=== PATIENT | female | born 1980 | race Caucasian/White ===

== ENCOUNTER 2018-02-08 09:17 | Emergency (ER) | payer OTHER ==
[2018-02-08] MEDS ORDERED: AMOX/CLAV 875 MG/125 MG TABLET PO STA (09:42)
--- NOTE | 2018-02-08 10:08 | XRAY Report ---
Reason: dog bite Procedure Date: 02/08/2018 Accession Number: [id number] / [id number] Procedure: XR - Hand 3 View RT CPT Code: FULL RESULT: EXAM: RIGHT HAND RADIOGRAPHY EXAM DATE: 02/08/2018 09:51 AM. CLINICAL HISTORY: Dog bite third digit. Pain. COMPARISON: None. TECHNIQUE: 3 views. FINDINGS: Bones: Normal. No fractures or bone lesions. Joints: Normal. No subluxations. Soft Tissues: Mild soft tissue swelling about the third digit. No radiopaque foreign body. IMPRESSION: No osseous abnormality or radiopaque foreign body. RADIA
--- NOTE | 2018-02-08 10:11 | ED Physician Documentation ---
PD HPI ANIMAL BITE - Stated complaint Stated Complaint: DOG BITE - Chief complaint Chief Complaint: Wound - History obtained from History obtained from: Patient - History of Present Illness Location of injury(ies): Right hand Details of the event: Dog, Bite, Scratch, Immunized Timing - onset: Other (2 days ago) Timing - details: Abrupt onset Severity Comments: mild Improved by: Rest Worsened by: Moving Associated symptoms: Tingling, Swelling. 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 - Present Medications Home Medications: Ambulatory Orders Medication Instructions Recorded Confirmed Dextroamphetamine/Amphetamine 20 mg PO QAM 04/21/13 04/21/13 [Adderall 15 mg Tablet] Levonorgestrel [Mirena] 1 each IY 04/21/13 04/21/13 Trazodone HCl 50 mg PO HS PRN 04/21/13 04/21/13 Amox/Clav 875/125 [Augmentin] 1 each PO Q12H #20 tablet 02/08/18 - Allergies Allergies/Adverse Reactions: Allergies Allergy/AdvReac Type Severity Reaction Status Date / Time doxycycline Allergy Unknown Verified 02/08/18 09:44 - Social History Does the pt smoke?: Yes Smoking Status: Current every day smoker Does the pt drink ETOH?: No Does the pt have substance abuse?: No - Immunizations Immunizations are current?: Yes PD ED PE NORMAL - General General: Alert and oriented X 3, No acute distress - HEENT HEENT: Atraumatic, PERRL, EOMI, Ears normal - Derm Derm: Other (The patient has a puncture wound and abrasions to the right volar aspect of the third digit) - Extremities Extremities: No deformity, Other (The patient has full active range of motion of the right hand, strength brisk cap refill, a normal radial pulse. There is no bony tenderness. There is evidence of a dog bite puncture wound on the volar side of the right third digit, there is also teeth singh scratches. The patient is tender to palpation over this area. There is no tenderness along the flexor tendon, no pain with passive range of motion of the fingers, there is swelling but the swelling appears appropriate for the wound and is not a sausage appearing digit. No active drainage. There is no erythema streaking up the hand) - Neuro Neuro: Alert and oriented X 3, Normal speech - Psych Psych: Normal mood Results - Vitals Vitals: Vital Signs - 24 hr 02/08/18 02/08/18 09:29 10:21 Temperature 36.4 C L Heart Rate 64 64 Respiratory 16 17 Rate Blood Pressure 129/69 122/75 O2 Saturation 98 98 Oxygen O2 Source Room air PD MEDICAL DECISION MAKING - ED course ED course: The patient has no clinical evidence of flexor tenosynovitis, there is local erythema and the patient replaced on a course of antibiotics given the fact that this is a dog bite. The patient has a paresthesia sensation which most likely is secondary to the injury. The patient appears appropriate for discharge and reevaluation by orthopedics as an outpatient. I discussed with the patient warning signs for flexor tenosynovitis and various other etiologies and recommended returning to the emergency department immediately for any worsening or any concerns. Departure - Departure Disposition: 01 Home, Self Care Clinical Impression: Dog bite Qualifiers: Encounter type: initial encounter Qualified Code(s): W54.0XXA - Bitten by dog, initial encounter Condition: Good Instructions: ED Bite Dog Follow-Up: Deion Michelle MD [Provider Admit Priv/Credential] - Within 1 week Prescriptions: Amox/Clav 875/125 [Augmentin] 1 each PO Q12H #20 tablet Comments: Please follow-up with orthopedics for your hand injury. Please call to schedule appointment. Please return to the emergency department immediately for any worsening or concerns.
[2018-02-08 10:22] VITALS: BP 122/75
== END 2018-02-08 10:21 | disposition home or self-care (01) ==
LOC: ED 09:17
DX: S61.451A Open bite of right hand, initial encounter (principal); S60.511A Abrasion of right hand, initial encounter; W54.0XXA Bitten by dog, initial encounter; L53.9 Erythematous condition, unspecified; F17.200 Nicotine dependence, unspecified, uncomplicated
CPT/HCPCS: 73130; 99283; A9270

== ENCOUNTER 2018-03-18 11:07 | Emergency (ER) | payer OTHER ==
--- NOTE | 2018-03-18 13:21 | ED Physician Documentation ---
PD HPI ABD PAIN - Stated complaint Stated Complaint: VOMITTING/R SIDE PX - Chief complaint Chief Complaint: Abd Pain - History obtained from History obtained from: Patient - History of Present Illness Timing - onset: How many weeks ago (1) Timing - duration: Weeks (1) Timing - details: Abrupt onset (had onset of nausea for a week. Had some episodic vomiting, but this is more the past 1-2 days. Having upper abd pain for a day, RUQ mostly. No hematemesis. has had constipation.), Still present Quality: Cramping, Aching, Pain Location: RUQ, Epigastric Radiation: Right flank Improved by: Vomiting. No: Eating Worsened by: Eating. No: Breathing, Palpation Associated symptoms: Nausea, Vomiting, Constipation. No: Fever, Hematemesis, Diarrhea, Melena, Dysuria, Vaginal bleeding, Vaginal dc Similar symptoms before: Has not had sx before Recently seen: Clinic (seen today and referred to ER for testing.) Review of Systems Constitutional: reports: Fatigue. denies: Fever, Chills, Myalgias Nose: denies: Rhinorrhea / runny nose, Congestion Throat: denies: Sore throat Respiratory: denies: Cough GI: reports: Abdominal Pain, Nausea, Vomiting, Constipation : denies: Dysuria, Frequency Skin: denies: Rash, Lesions Neurologic: reports: Generalized weakness. 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 - Present Medications Home Medications: Ambulatory Orders Medication Instructions Recorded Confirmed Dextroamphetamine/Amphetamine 20 mg PO QAM 04/21/13 04/21/13 [Adderall 15 mg Tablet] Levonorgestrel [Mirena] 1 each IY 04/21/13 04/21/13 Trazodone HCl 50 mg PO HS PRN 04/21/13 04/21/13 Amox/Clav 875/125 [Augmentin] 1 each PO Q12H #20 tablet 02/08/18 Famotidine 20 mg PO DAILY #15 tablet 03/18/18 Naproxen 375 mg PO BID #20 tablet 03/18/18 Ondansetron Odt [Zofran] 4 mg TL Q6H PRN #10 tablet 03/18/18 - Allergies Allergies/Adverse Reactions: Allergies Allergy/AdvReac Type Severity Reaction Status Date / Time doxycycline Allergy Unknown Verified 03/18/18 11:15 - Social History Does the pt smoke?: Yes Smoking Status: Current every day smoker Does the pt drink ETOH?: No Does the pt have substance abuse?: No - Immunizations Immunizations are current?: Yes PD ED PE NORMAL - Vitals Vital signs reviewed: Yes - General General: Alert and oriented X 3, No acute distress, Well developed/nourished - HEENT HEENT: Pharynx benign. No: Moist mucous membranes - Neck Neck: Supple, no meningeal sign, No adenopathy - Cardiac Cardiac: RRR, No murmur - Respiratory Respiratory: Clear bilaterally - Abdomen Abdomen: Normal bowel sounds, Soft, Non distended, No organomegaly, Other (t kortney epigastric and RUQ areas. ) - Female Female : Deferred - Rectal Rectal: Deferred - Back Back: No CVA TTP - Derm Derm: Normal color, Warm and dry - Extremities Extremities: No deformity, No tenderness to palpate, Normal ROM s pain - Neuro Neuro: Alert and oriented X 3, No motor deficit, Normal speech Results - Vitals Vitals: Oxygen O2 Source Room air - Labs Labs: Laboratory Tests 03/18/18 03/18/18 03/18/18 13:20 13:20 13:20 WBC 8.1 RBC 4.95 Hgb 14.5 Hct 42.6 MCV 86.1 MCH 29.3 MCHC 34.0 RDW 13.4 Plt Count 348 MPV 7.9 Neut # (Auto) 4.9 Lymph # (Auto) 2.3 Bibb # (Auto) 0.5 Eos # (Auto) 0.4 Baso # (Auto) 0.1 Absolute Nucleated RBC 0.01 Nucleated RBC % 0.1 Sodium 136 Potassium 4.1 Chloride 103 Carbon Dioxide 28 Anion Gap 5.0 L BUN 11 Creatinine 0.7 Estimated GFR (MDRD) 93 Glucose 89 Calcium 8.8 Total Bilirubin 0.6 AST 27 ALT 35 Alkaline Phosphatase 67 Total Protein 7.9 Albumin 4.4 Globulin 3.5 Albumin/Globulin Ratio 1.3 Lipase 32 Urine Color YELLOW Urine Clarity CLEAR Urine pH 6.0 Ur Specific Pioneer 1.025 Urine Protein NEGATIVE Urine Glucose (UA) NEGATIVE Urine Ketones NEGATIVE Urine Occult Blood TRACE-LYSE Urine Nitrite NEGATIVE Urine Bilirubin NEGATIVE Urine Urobilinogen 0.2 (NORMAL) Ur Leukocyte Esterase NEGATIVE Ur Microscopic Review NOT INDICATED Urine Culture Comments NOT INDICATED Urine HCG, Qual NEGATIVE - Rads (name of study) abd U/S Radiology: Prelim report reviewed (normal), See rad report PD MEDICAL DECISION MAKING - ED course Complexity details: reviewed results (abd U/S normal. May have pain upper abd from the vomiting. Consider gastritis. ), considered differential, d/w patient Departure - Departure Disposition: 01 Home, Self Care Clinical Impression: Upper abdominal pain Vomiting Qualifiers: Vomiting type: unspecified Vomiting Intractability: non-intractable Nausea presence: with nausea Qualified Code(s): R11.2 - Nausea with vomiting, unspecified Condition: Stable Record reviewed to determine appropriate education?: Yes Instructions: ED Abdominal Pain Unkn Cause, ED Nausea Vomiting Follow-Up: ZELDA DE LOS SANTOS [Primary Care Provider] - Prescriptions: Famotidine 20 mg PO DAILY #15 tablet Naproxen 375 mg PO BID #20 tablet Ondansetron Odt [Zofran] 4 mg TL Q6H PRN #10 tablet PRN Reason: Nausea / Vomiting Comments: Your ultrasound was normal appearance for gallbladder and common bile duct. There was an apparent cyst in the liver which is relatively common. I presume your vomiting is related to a viral illness and the upper pain in the belly may be just muscular from the vomiting. We will try ondansetron for nausea and small frequent fluids and see how you improved. Famotidine daily for a week or 2 to decrease his stomach acids as your stomach is healing. Naproxen twice daily for the pains and add Tylenol if needed. Recheck if not improved in the next day or 2. Discharge Date/Time: 03/18/18 16:38
[2018-03-18 13:28] LABS: BILIRUBIN,URINE NEGATIVE (NEGATIVE); GLUCOSE, URINE (UA) NEGATIVE (NEGATIVE); KETONES,URINE (UA) NEGATIVE (NEGATIVE); LEUKOCYTE ESTERASE, URINE NEGATIVE (NEGATIVE); NITRITE,URINE NEGATIVE (NEGATIVE); OCCULT BLOOD,URINE TRACE-LYSE (NEGATIVE); PROTEIN,URINE NEGATIVE (NEGATIVE); UROBILINOGEN,URINE 0.2 (NORMAL) E.U./dL (NORMAL)
[2018-03-18 13:35] LABS: CLARITY,URINE CLEAR (CLEAR); HCG UR QUAL NEGATIVE
[2018-03-18 13:37] LABS: BASOPHILS # (AUTO) 0.1 10^3/uL (0.0-0.1); BASOPHILS % (AUTO) 1.3 %; EOSINOPHILS # (AUTO) 0.4 10^3/uL (0.0-0.7); EOSINOPHILS % (AUTO) 4.3 %; HGB - HEMOGLOBIN 14.5 g/dL (12.0-16.0); LYMPHOCYTES # (AUTO) 2.3 10^3/uL (1.5-3.5); MEAN CORPUSCULAR HEMOGLOBIN 29.3 pg (27.0-31.0); MEAN CORPUSCULAR VOLUME 86.1 fL (81.0-99.0); MEAN PLATELET VOLUME 7.9 fL (7.9-10.8); MONOCYTES # (AUTO) 0.5 10^3/uL (0.0-1.0); MONOCYTES % (AUTO) 5.5 %; NEUTROPHILS # (AUTO) 4.9 10^3/uL (1.5-6.6); NEUTROPHILS % (AUTO) 60.9 %; PLT - PLATELET COUNT 348 10^3/uL (130-450); RED BLOOD COUNT 4.95 10^6/uL (4.20-5.40); RED CELL DISTRIBUTION WIDTH 13.4 % (12.0-15.0); WHITE BLOOD COUNT 8.1 x10^3/uL (4.8-10.8)
[2018-03-18 13:39] LABS: ALBUMIN 4.4 g/dL (3.2-5.5); ALBUMIN/GLOBULIN RATIO 1.3 (1.0-2.2); BILIRUBIN,TOTAL 0.6 mg/dL (0.2-1.0); CALCIUM 8.8 mg/dL (8.5-10.3); CREATININE 0.7 mg/dL (0.4-1.0); TOTAL PROTEIN 7.9 g/dL (6.7-8.2)
[2018-03-18] MEDS ORDERED: SODIUM CHLORIDE 0.9% 1,000 ML IV ONE ×2 (13:42→13:43)
[2018-03-18] MEDS ORDERED: ONDANSETRON 4 MG/2 ML VIAL IVP STA (13:42)
[2018-03-18] MEDS ORDERED: KETOROLAC 60 MG/2 ML VIAL IVP STA (13:42)
[2018-03-18] MEDS ORDERED: FAMOTIDINE 20 MG/2 ML VIAL IVP STA (13:45)
[2018-03-18] MEDS ORDERED: DOCUSATE SODIUM 100 MG CAPSULE PO STA (13:45)
--- NOTE | 2018-03-18 15:39 | Ultrasound Report ---
Reason: RUQ abd pain and vomiting for 2 days Procedure Date: 03/18/2018 Accession Number: [id number] / [id number] Procedure: US - Abdomen Limited CPT Code: FULL RESULT: EXAM: ABDOMEN ULTRASOUND LIMITED, RIGHT UPPER QUADRANT EXAM DATE: 03/18/2018 03:23 PM. CLINICAL HISTORY: Right upper quadrant abdominal pain and vomiting for 2 days. COMPARISON: None. TECHNIQUE: Real-time scanning was performed with static images obtained. FINDINGS: Liver: Liver demonstrates increased parenchymal echogenicity with a mildly heterogeneous echotexture in keeping with hepatic steatosis. Right lobe of the liver measures at least 17.6 cm. There is a well-circumscribed echogenic 2.3 x 2.6 x 2.1 cm mass near the dome of the right liver. Main portal vein flow: Hepatopetal. Gallbladder: Normal. No stones, wall thickening, or sonographic Irvin's sign. Biliary System: CBD measures 4 mm. No intrahepatic or extrahepatic ductal dilatation. Other: Right kidney measures up to 30 x 3 cm and demonstrates no genesis hydronephrosis. IMPRESSION: No cholecystitis. Echogenic liver parenchyma, often seen with steatosis. Echogenic mass at the dome of the right liver, up to 2.[address] multiphase liver protocol for characterization on routine outpatient basis. RADIA
[2018-03-18 16:30] VITALS: BP 132/83
== END 2018-03-18 16:38 | disposition home or self-care (01) ==
LOC: ED 11:07
DX: R10.11 Right upper quadrant pain (principal); R11.2 Nausea with vomiting, unspecified; F17.200 Nicotine dependence, unspecified, uncomplicated
CPT/HCPCS: 36415; 76705; 80053; 81003; 81025; 83690; 85025; 96361; 96374; 96375; 99283; A9270; 81001; 87086

== ENCOUNTER 2018-08-17 16:34 | Emergency (ER) | payer OTHER ==
[2018-08-17 16:53] VITALS: BP 145/96
--- NOTE | 2018-08-17 17:13 | ED Physician Documentation ---
PD HPI ANIMAL BITE - Stated complaint Stated Complaint: DOG BITE - Chief complaint Chief Complaint: Trauma Ext - History obtained from History obtained from: Patient - History of Present Illness Location of injury(ies): Face, Left hand Details of the event: Dog, Bite, Scratch, Pet animal, Well appearing, Immunized, Animal can be observed Timing - onset: Today Timing - duration: Minutes Timing - details: Abrupt onset, Still present Improved by: Rest, Immobilization Worsened by: Moving, Palpating Associated symptoms: No: Weakness, Numbness, Tingling Contributing factors: No: Immunocompromised Similar symptoms before: Has not had sx before Recently seen: Not recently seen - Additional information Additional information: Previously well 38-year-old female with 4 dogs states that her little dachshund got out of the fencing area and was going after a deer. She was having a hard time opening the gait to get after the dachshund because the other dogs were at the gate. She was able to pick the dog up but she was bit by the dachshund and the other dogs became concerned and attacked the dachshund. The patient was bit in the left thumb and scratched on the right side of the chin. 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 - Present Medications Home Medications: Ambulatory Orders Medication Instructions Recorded Confirmed Dextroamphetamine/Amphetamine 30 mg PO QAM 04/21/13 08/17/18 [Adderall 15 mg Tablet] Levonorgestrel [Mirena] 1 each IY 04/21/13 04/21/13 Trazodone HCl 50 mg PO HS PRN 04/21/13 08/17/18 Amox/Clav 875/125 [Augmentin] 1 each PO Q12H #10 tablet 08/17/18 FLUoxetine [PROzac] 20 mg ORAL DAILY 08/17/18 08/17/18 - Allergies Allergies/Adverse Reactions: Allergies Allergy/AdvReac Type Severity Reaction Status Date / Time doxycycline Allergy Unknown Verified 08/17/18 16:39 - Social History Does the pt smoke?: Yes Smoking Status: Current every day smoker Does the pt drink ETOH?: No Does the pt have substance abuse?: No - Immunizations Immunizations are current?: Yes - POLST Patient has POLST: No PD ED PE NORMAL - Vitals Vital signs reviewed: Yes (hypertensive ) - General General: Alert and oriented X 3, Well developed/nourished, Other (The patient is emotionally distressed and in tears) - HEENT HEENT: PERRL, EOMI, Other (There is a linear scratch to the right mental area about 3cm in length without penetration through the dermis. ) - Neck Neck: Supple, no meningeal sign, No bony TTP - Respiratory Respiratory: No respiratory distress - Derm Derm: Normal color, Warm and dry, No rash - Extremities Extremities: No deformity, Other (There is a bite to the left thumb over the DIP with tearing of the skin and no fb. The distal n/v is intact. ) - Neuro Neuro: Alert and oriented X 3, track leader 2-12 intact, No motor deficit, No sensory deficit, Normal speech Eye Opening: Spontaneous Motor: Obeys Commands Verbal: Oriented GCS Score: 15 - Psych Psych: Normal mood, Normal affect Results - Vitals Vitals: Vital Signs - 24 hr 08/17/18 16:42 Temperature 36.7 C Heart Rate 96 Respiratory 16 Rate Blood Pressure 145/96 H O2 Saturation 99 Oxygen O2 Source Room air PD MEDICAL DECISION MAKING - ED course Complexity details: re-evaluated patient, considered differential, d/w patient ED course: 38-year-old female with a dog bite to the left thumb and a scratch to the chin has wounds that are cleansed and dressed she is up-to-date on her tetanus will place her on some Augmentin prophylactically. Departure - Departure Disposition: 01 Home, Self Care Clinical Impression: Dog bite Qualifiers: Encounter type: initial encounter Qualified Code(s): W54.0XXA - Bitten by dog, initial encounter Condition: Stable Instructions: ED Bite Animal General Follow-Up: ZELDA DE LOS SANTOS [Primary Care Provider] - Prescriptions: Amox/Clav 875/125 [Augmentin] 1 each PO Q12H #10 tablet
[2018-08-17] MEDS ORDERED: HYDROcod/ACET 5/325 Prepack 4 PO STA (17:17)
[2018-08-17] MEDS ORDERED: AMOX/CLAV 875 MG/125 MG TABLET PO STA (17:17)
[2018-08-17] MEDS ORDERED: BACITRACIN OINT TOP ONE (17:40)
== END 2018-08-17 17:42 | disposition home or self-care (01) ==
LOC: ED 16:34
DX: S61.052A Open bite of left thumb without damage to nail, initial encounter (principal); S00.81XA Abrasion of other part of head, initial encounter; W54.0XXA Bitten by dog, initial encounter; Y93.89 Activity, other specified; F17.200 Nicotine dependence, unspecified, uncomplicated
CPT/HCPCS: 99283; A9270

== ENCOUNTER 2019-06-04 18:53 | Emergency (ER) | payer OTHER ==
[2019-06-04] MEDS ORDERED: LOPERAMIDE 2 MG CAPSULE PO STA (19:21)
[2019-06-04] MEDS ORDERED: SODIUM CHLORIDE 0.9% 1,000 ML IV ONE (19:21)
[2019-06-04] MEDS ORDERED: ONDANSETRON 4 MG/2 ML VIAL IVP STA (19:21)
[2019-06-04 19:43] LABS: EOSINOPHILS % (AUTO) 1.8 %; RED CELL DISTRIBUTION WIDTH 12.5 % (12.0-15.0)
--- NOTE | 2019-06-04 19:44 | ED Physician Documentation ---
PD HPI ALTERED MENTAL STATUS - Stated complaint Stated Complaint: CONFUSION, MEMORY LOSS, DIFFICULTY SPEAKING - Chief complaint Chief Complaint: Neuro - History obtained from History obtained from: Patient ((very limited HPI/ROS from patient due to AMS)), Family (daughter (at bedside)) - History of Present Illness Timing - onset: Today Quality / character: Confused Associated symptoms: Other (unknown) Basline status: Alert and oriented X 3, Ambulatory, Independent Recently seen: Not recently seen - Additional information Additional information: Limited HPI/ROS, and limited cooperation with physical exam due to AMS. Patient is drowsy, oriented x 1 (arguably less; does not know time, place, and says her [place]". 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 Subsequently, patient told her daugher that she (patient) felt like she "ruptured one of her ovarian cysts" (per daughter), and thus took some "THC...SSR?" (per daughter). Since then, patient has become increasingly drowsy and thus brought to ED for AMS. 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 - Present Medications Home Medications: Ambulatory Orders Medication Instructions Recorded Confirmed Dextroamphetamine/Amphetamine 30 mg PO QAM 04/21/13 08/17/18 [Adderall 15 mg Tablet] Levonorgestrel [Mirena] 1 each IY 04/21/13 04/21/13 Trazodone HCl 50 mg PO HS PRN 04/21/13 08/17/18 Amox/Clav 875/125 [Augmentin] 1 each PO Q12H #10 tablet 08/17/18 FLUoxetine [PROzac] 20 mg ORAL DAILY 08/17/18 08/17/18 - Allergies Allergies/Adverse Reactions: Allergies Allergy/AdvReac Type Severity Reaction Status Date / Time doxycycline Allergy Unknown Verified 08/17/18 16:39 - Social History Does the pt smoke?: Yes Smoking Status: Current every day smoker Does the pt drink ETOH?: No Does the pt have substance abuse?: No - Immunizations Immunizations are current?: Yes - POLST Patient has POLST: No PD ED PE NORMAL - Vitals Vital signs reviewed: Yes - General General: No acute distress, Well developed/nourished - HEENT HEENT: Atraumatic, PERRL, EOMI, Moist mucous membranes - Neck Neck: Supple, no meningeal sign, No bony TTP - Cardiac Cardiac: RRR, No murmur - Respiratory Respiratory: No respiratory distress, Clear bilaterally - Abdomen Abdomen: Soft, Non tender - Derm Derm: Normal color, Warm and dry PD ED PE EXPANDED - General General: Lethargic - GCS Eye Opening: To Voice Motor: Obeys Commands Verbal: Confused Total: 13 Results - Vitals Vitals: Vital Signs - 24 hr 06/04/19 06/04/19 06/04/19 18:58 20:22 22:39 Temperature 36.6 C Heart Rate 112 H 100 89 Respiratory 14 16 16 Rate Blood Pressure 147/72 H 116/70 111/63 O2 Saturation 96 99 98 06/05/19 06/05/19 00:35 02:10 Temperature Heart Rate 71 69 Respiratory 16 16 Rate Blood Pressure 101/63 105/63 O2 Saturation 97 97 Oxygen O2 Source Room air - EKG (time done) No standard instances Rate: Rate (enter#) (109) Rhythm: Sinus tachycardia Turner: Normal Intervals: Normal MA, Prolonged QT QRS: Normal Ischemia: Normal ST segments, Q waves (III, with minimal Q II, aVF) - Labs Labs: Laboratory Tests 06/04/19 06/04/19 06/04/19 19:35 19:35 20:28 WBC 16.3 H RBC 4.66 Hgb 12.8 Hct 40.3 MCV 86.5 MCH 27.5 MCHC 31.8 L RDW 12.5 Plt Count 416 MPV 10.0 Neut # (Auto) Not Reportable Lymph # (Auto) Not Reportable Runnels # (Auto) Not Reportable Eos # (Auto) Not Reportable Baso # (Auto) Not Reportable Absolute Nucleated RBC Not Reportable Total Counted 100 Band Neuts % (Manual) 1 Abnorm Lymph % (Manual) 0 Nucleated RBC % Not Reportable Neutrophils # (Manual) 8.5 H Lymphocytes # (Manual) 7.0 H Monocytes # (Manual) 0.7 Eosinophils # (Manual) 0.0 Basophils # (Manual) 0.2 H Differential Comment MANUAL DIFFERENTIAL Manual Slide Review Indicated WBC Morphology NORMAL APPEARANCE Platelet Estimate NORMAL (130-450,000) Platelet Morphology NORMAL APPEARANCE RBC Morph Micro Appear NORMAL APPEARANCE Sodium 134 L Potassium 2.9 L Chloride 100 L Carbon Dioxide 22 Anion Gap 12.0 BUN 15 Creatinine 1.0 Estimated GFR (MDRD) 61 L Glucose 208 H Calcium 8.6 Total Bilirubin 0.4 AST 23 ALT 24 Alkaline Phosphatase 59 Total Protein 7.1 Albumin 4.0 Globulin 3.1 Albumin/Globulin Ratio 1.3 Lipase 29 Urine Color YELLOW Urine Clarity CLEAR Urine pH 5.5 Ur Specific Sims >=1.030 H Urine Protein NEGATIVE Urine Glucose (UA) NEGATIVE Urine Ketones NEGATIVE Urine Occult Blood SMALL H Urine Nitrite NEGATIVE Urine Bilirubin NEGATIVE Urine Urobilinogen 0.2 (NORMAL) Ur Leukocyte Esterase NEGATIVE Urine RBC 6-10 H Urine WBC 0-3 Ur Squamous Epith Cells FEW Squamous Urine Bacteria None Seen Urine Mucus Few Strands Ur Microscopic Review INDICATED Urine Culture Comments NOT INDICATED Urine HCG, Qual NEGATIVE Urine Opiates Screen NEGATIVE Ur Oxycodone Screen NEGATIVE Urine Methadone Screen NEGATIVE Ur Propoxyphene Screen NEGATIVE Ur Barbiturates Screen NEGATIVE Ur Tricyclics Screen NEGATIVE Ur Phencyclidine Scrn NEGATIVE Ur Amphetamine Screen NEGATIVE U Methamphetamines Scrn NEGATIVE U Benzodiazepines Scrn NEGATIVE Urine Cocaine Screen NEGATIVE U Cannabinoids Screen POSITIVE H - Rads (name of study) CT head Radiology: Prelim report reviewed, See rad report PD MEDICAL DECISION MAKING - ED course Complexity details: reviewed results, re-evaluated patient, considered differential, d/w patient, d/w family ED course: I d/w Wil Dinh (spouse of patient) over the phone. He says patient has had "strained abdominal muscle pain" of subacute onset, has seen PMD for this. She also was recently seen at ED for abdominal pain. Per , gallstones were found as was an ovarian cyst "ready to burst"; patient followed up with PMD and was told the gallstones were not causing her pain, and that it was again suspected the pain was due to muscle strain of some sort. Tonight she was lifting a large bag of dog food and c/o increased pain. says she did not take any pain medication for this, although she did use some sort of marijuana oil; I asked if this was topical and he said no, that it was ingested. This was this evening. He says she subsequently had difficulty speaking more than one word at a time, was making less sense and thus brought to ED. Patient was held in ED for several hours and gradually became increasingly awake and alert and was AAOx3 on reevaluation prior to discharge. She says she accidentally took more CBD oil than she meant to (did not realize it was more concentrated than what she was expecting) Departure - Departure Disposition: 01 Home, Self Care Clinical Impression: Altered mental status Condition: Good Instructions: ED Altered Loc, ED Confusion Follow-Up: ZELDA DE LOS SANTOS [Primary Care Provider] - Discharge Date/Time: 06/05/19 02:25
[2019-06-04 19:49] LABS: BASOPHILS % (AUTO) 0.9 %; HGB - HEMOGLOBIN 12.8 g/dL (12.0-16.0); LYMPHOCYTES % (AUTO) 33.6 %; MEAN CORPUSCULAR HEMOGLOBIN 27.5 pg (27.0-31.0); MEAN CORPUSCULAR HGB CONC 31.8 g/dL (32.0-36.0); MEAN CORPUSCULAR VOLUME 86.5 fL (81.0-99.0); MONOCYTES % (AUTO) 5.2 %; NEUTROPHILS % (AUTO) 58.1 %; PLT - PLATELET COUNT 416 10^3/uL (130-450); RED BLOOD COUNT 4.66 10^6/uL (4.20-5.40); WHITE BLOOD COUNT 16.3 x10^3/uL (4.8-10.8)
[2019-06-04 19:58] LABS: ALBUMIN/GLOBULIN RATIO 1.3 (1.0-2.2); BILIRUBIN,TOTAL 0.4 mg/dL (0.2-1.0); CALCIUM 8.6 mg/dL (8.5-10.3); TOTAL PROTEIN 7.1 g/dL (6.7-8.2)
[2019-06-04 20:03] LABS: ABNORMAL LYMPHS % (MANUAL) 0 %
[2019-06-04 20:17] LABS: BAND NEUTROPHILS % (MANUAL) 1 %; BASOPHILS # (MANUAL) 0.2 10^3/uL (0-0.1); BASOPHILS % (MANUAL) 1 %; DIFFERENTIAL COMMENT MANUAL DIFFERENTIAL; LYMPHOCYTES % (MANUAL) 43 %; MONOCYTES # (MANUAL) 0.7 10^3/uL (0.0-1.0); PLATELET ESTIMATE, MANUAL NORMAL (130-450,000) (NORMAL); PLATELET MORPHOLOGY NORMAL APPEARANCE (NORMAL); RBC MORPHOLOGY (MULTIPLE) NORMAL APPEARANCE (NORMAL)
[2019-06-04] MEDS ORDERED: NALOXONE 0.4 MG/ML VIAL IVP STA (20:30)
[2019-06-04 20:38] LABS: BILIRUBIN,URINE NEGATIVE (NEGATIVE); GLUCOSE, URINE (UA) NEGATIVE (NEGATIVE); KETONES,URINE (UA) NEGATIVE (NEGATIVE); LEUKOCYTE ESTERASE, URINE NEGATIVE (NEGATIVE); MUDS CUTOFF CONCENTRATIONS CUTOFF CONC BELOW:; NITRITE,URINE NEGATIVE (NEGATIVE); OCCULT BLOOD,URINE SMALL (NEGATIVE); PH,URINE 5.5 PH (5.0-7.5); PROTEIN,URINE NEGATIVE (NEGATIVE); UROBILINOGEN,URINE 0.2 (NORMAL) E.U./dL (NORMAL)
[2019-06-04 20:49] LABS: CLARITY,URINE CLEAR (CLEAR); HCG UR QUAL NEGATIVE
[2019-06-04 20:50] LABS: BACTERIA,URINE None Seen /HPF (None Seen); MUCUS,URINE Few Strands; SQUAMOUS EPITHELIAL CELL,UR FEW Squamous (<= Few)
[2019-06-04 20:52] LABS: AMPHETAMINE SCREEN,URINE NEGATIVE (NEGATIVE); BENZODIAZEPINES SCREEN, URINE NEGATIVE (NEGATIVE); COCAINE SCREEN URINE NEGATIVE (NEGATIVE); METHADONE SCREEN, URINE NEGATIVE (NEGATIVE); METHAMPHETAMINES SCREEN, URINE NEGATIVE (NEGATIVE); OPIATE SCREEN, URINE NEGATIVE (NEGATIVE); OXYCODONE SCREEN, URINE NEGATIVE (NEGATIVE); PROPOXYPHENE SCREEN, URINE NEGATIVE (NEGATIVE); TRICYCLIC ANTIDEPRESSANT,URINE NEGATIVE (NEGATIVE)
--- NOTE | 2019-06-04 20:59 | CT Report ---
Reason: AMS Procedure Date: 06/04/2019 Accession Number: [id number] / [id number] Procedure: CT - HEAD WO CPT Code: Final Report FULL RESULT: EXAM: CT HEAD EXAM DATE: 06/04/2019 08:46 PM. CLINICAL HISTORY: Confusion COMPARISON: None. TECHNIQUE: Multiaxial CT images were obtained from the foramen magnum to the vertex. Reformats: Sagittal and coronal. IV contrast: None. In accordance with CT protocol optimization, one or more of the following dose reduction techniques were utilized for this exam: automated exposure control, adjustment of mA and/or KV based on patient size, or use of iterative reconstructive technique. FINDINGS: Parenchyma: No intraparenchymal hemorrhage. No evidence of mass, midline shift, or CT findings of infarction. Street-white differentiation is distinct. Extraaxial Spaces: Normal for age. No subdural or epidural collections identified. Ventricles: Normal in size and position. Sinuses and Orbits: Imaged paranasal sinuses, orbits, and mastoids show no significant abnormality. Bones: No evidence of fracture or calvarial defect. Other: None. IMPRESSION: No acute intracranial CT abnormality. RADIA
[2019-06-04] MEDS ORDERED: POTASSIUM CHLOR 10 MEQ/100 ML 10 MEQ/100 ML BAG IV STA (21:27)
[2019-06-05 02:10] VITALS: BP 105/63
== END 2019-06-05 02:25 | disposition home or self-care (01) ==
LOC: ED 18:53
DX: R41.82 Altered mental status, unspecified (principal); F17.200 Nicotine dependence, unspecified, uncomplicated
CPT/HCPCS: 36415; 51701; 70450; 80053; 81001; 81025; 83690; 85025; 93005; 96361; 96365; 96375; 99284; 99285; A9270; 80306; 81003; 87086

== ENCOUNTER 2019-11-24 10:37 | Outpatient (CLI) | payer OTHER | END 2019-11-24 23:59 | disposition short-term general hospital (02) | LOC: EMS 10:37 | PROVIDERS: ATTEND Surgery | DX: R07.89 Other chest pain (principal) | CPT/HCPCS: A0425; A0427 ==

== ENCOUNTER 2020-01-04 17:57 | Outpatient (CLI) | payer OTHER | END 2020-01-04 17:58 | disposition critical access hospital (66) | LOC: EMS 17:57 | PROVIDERS: ATTEND Surgery | DX: R41.0 Disorientation, unspecified (principal); R20.0 Anesthesia of skin | CPT/HCPCS: A0425; A0427 ==

== ENCOUNTER 2020-01-04 18:29 | Emergency (ER) | payer OTHER ==
[2020-01-04] MEDS ORDERED: LORazepam 2 MG/ML VIAL IVP STA (18:32)
--- NOTE | 2020-01-04 18:34 | ED Physician Documentation ---
PD HPI ALTERED MENTAL STATUS - Stated complaint Stated Complaint: AMS - History obtained from History obtained from: Patient, EMS - Additional information Additional information: 39-year-old woman with history of anxiety and potentially transient global amnesia presents with altered mental status starting today. She describes feeling confused with chest numbness. She is unsure of the time of onset. She took THC drink today. She says she does that often though. No other drug or alcohol use. 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 : None HEENT: None Psych: ADD/ADHD Musculoskeletal: None Derm: None - Past Surgical History Past Surgical History: Yes /DAILY SALES AUDIT CLERK: section - Present Medications Home Medications: Ambulatory Orders Medication Instructions Recorded Confirmed Dextroamphetamine/Amphetamine 30 mg PO QAM 04/21/13 08/17/18 [Adderall 15 mg Tablet] Levonorgestrel [Mirena] 1 each IY 04/21/13 04/21/13 Trazodone HCl 50 mg PO HS PRN 04/21/13 08/17/18 Amox/Clav 875/125 [Augmentin] 1 each PO Q12H #10 tablet 08/17/18 FLUoxetine [PROzac] 20 mg ORAL DAILY 08/17/18 08/17/18 - Allergies Allergies/Adverse Reactions: Allergies Allergy/AdvReac Type Severity Reaction Status Date / Time doxycycline Allergy Unknown Verified 01/04/20 18:35 - Social History Does the pt smoke?: Yes Smoking Status: Current every day smoker Does the pt drink ETOH?: No Does the pt have substance abuse?: No - Immunizations Immunizations are current?: Yes - POLST Patient has POLST: No PD ED PE NORMAL - Vitals Vital signs reviewed: Yes - General General: Other (She appears anxious and shaky, dilated pupils she is oriented to person and place but not time but can state the president. She knows her home address.) - HEENT HEENT: Other (Dilated pupils) - Neck Neck: Supple, no meningeal sign, No bony TTP - Cardiac Cardiac: RRR, No murmur - Respiratory Respiratory: No respiratory distress, Clear bilaterally - Abdomen Abdomen: Non tender - Back Back: No CVA TTP, No spinal TTP - Derm Derm: Normal color, Warm and dry - Extremities Extremities: No deformity, No tenderness to palpate, No edema, No calf tenderness / cord - Neuro Neuro: desk representative 2-12 intact, No motor deficit, No sensory deficit, Normal speech Eye Opening: Spontaneous Motor: Obeys Commands Verbal: Confused (mild) GCS Score: 14 Results - Vitals Vitals: Vital Signs - 24 hr 01/04/20 01/04/20 18:35 18:41 Temperature 36.8 C Heart Rate 106 H 105 H Respiratory 16 16 Rate Blood Pressure 147/94 H 145/89 H O2 Saturation 98 98 Oxygen O2 Source Room air - EKG (time done) 1837 Rate: Rate (enter#) (105) Rhythm: Sinus tachycardia [place]: Normal Intervals: Normal IA QRS: Normal Ischemia: Q waves (inferior) Computer interpretation: Agree with computer - Labs Labs: Laboratory Tests 01/04/20 01/04/20 01/04/20 18:40 18:40 18:40 WBC 11.4 H RBC 4.76 Hgb 13.7 Hct 41.9 MCV 88.0 MCH 28.8 MCHC 32.7 RDW 13.1 Plt Count 321 MPV 10.0 Neut # (Auto) 7.1 H Lymph # (Auto) 3.1 Young # (Auto) 0.8 Eos # (Auto) 0.2 Baso # (Auto) 0.1 Absolute Nucleated RBC 0.00 Nucleated RBC % 0.0 VBG pH VBG pCO2 VBG pO2 VBG HCO3 VBG Total CO2 VBG O2 Saturation VBG Base Excess Sodium 134 L Potassium 3.0 L Chloride 101 Carbon Dioxide 20 L Anion Gap 13.0 BUN 12 Creatinine 0.9 Estimated GFR (MDRD) 69 L Glucose 177 H Calcium 8.8 Total Bilirubin 1.2 H AST 24 ALT 27 Alkaline Phosphatase 58 Total Protein 7.5 Albumin 4.3 Globulin 3.2 Albumin/Globulin Ratio 1.3 Lipase 26 TSH 1.01 Salicylates < 6.0 Acetaminophen < 10 L Ethyl Alcohol < 5.0 01/04/20 18:40 WBC RBC Hgb Hct MCV MCH MCHC RDW Plt Count MPV Neut # (Auto) Lymph # (Auto) Young # (Auto) Eos # (Auto) Baso # (Auto) Absolute Nucleated RBC Nucleated RBC % VBG pH 7.393 VBG pCO2 33.0 L VBG pO2 60.9 H VBG HCO3 19.7 L VBG Total CO2 20.7 L VBG O2 Saturation 92.7 H VBG Base Excess -4.2 L Sodium Potassium Chloride Carbon Dioxide Anion Gap BUN Creatinine Estimated GFR (MDRD) Glucose Calcium Total Bilirubin AST ALT Alkaline Phosphatase Total Protein Albumin Globulin Albumin/Globulin Ratio Lipase TSH Salicylates Acetaminophen Ethyl Alcohol - Rads (name of study) CT of the head Radiology: EMP read contemporaneously (normal) PD MEDICAL DECISION MAKING - ED course ED course: Her arrived and further history is obtained. She was started on Wellbutrin 3 days ago, has not slept since that. Also has not used THC in quite some time, so my suspicion is combination of 4 days without sleep and the THC did this. After the administration of some IV fluids, Haldol and Ativan her examination was normal and she was feeling better and safe for discharge. Departure - Departure Disposition: 01 Home, Self Care Clinical Impression: Insomnia Qualifiers: Insomnia type: due to medical condition Qualified Code(s): G47.01 - Insomnia due to medical condition Altered mental status Qualifiers: Altered mental status type: delirium Qualified Code(s): R41.0 - Disorientation, unspecified Condition: Good Record reviewed to determine appropriate education?: Yes Instructions: ED Confusion Comments: As discussed, it seems now that everything is together that the episode you had today was probably related to poor sleep from the new prescription, the Wellbutrin and then may be having taken some THC and that added up to what happened tonight. Go home and sleep well. I would not take it Wellbutrin anymore. I would talk to your prescriber tomorrow about an alternative. Return if worsening. Do not drive tonight.
[2020-01-04 18:45] LABS: BASOPHILS # (AUTO) 0.1 10^3/uL (0.0-0.1); BASOPHILS % (AUTO) 0.7 %; EOSINOPHILS # (AUTO) 0.2 10^3/uL (0.0-0.7); HGB - HEMOGLOBIN 13.7 g/dL (12.0-16.0); LYMPHOCYTES # (AUTO) 3.1 10^3/uL (1.5-3.5); LYMPHOCYTES % (AUTO) 27.3 %; MEAN CORPUSCULAR HEMOGLOBIN 28.8 pg (27.0-31.0); MEAN CORPUSCULAR HGB CONC 32.7 g/dL (32.0-36.0); MONOCYTES # (AUTO) 0.8 10^3/uL (0.0-1.0); MONOCYTES % (AUTO) 6.7 %; NEUTROPHILS # (AUTO) 7.1 10^3/uL (1.5-6.6); NEUTROPHILS % (AUTO) 62.9 %; PLT - PLATELET COUNT 321 10^3/uL (130-450); RED BLOOD COUNT 4.76 10^6/uL (4.20-5.40); RED CELL DISTRIBUTION WIDTH 13.1 % (12.0-15.0); WHITE BLOOD COUNT 11.4 x10^3/uL (4.8-10.8)
[2020-01-04 18:50] LABS: VBG BASE EXCESS -4.2 mmol/L (-2 - +2); VBG PH 7.393 (7.31-7.41); VBG PO2 60.9 mmHg (25-47); VBG TOTAL CO2 20.7 mmol/L (24-29)
[2020-01-04 19:00] LABS: ACETAMINOPHEN < 10 ug/mL (10-30); ALBUMIN 4.3 g/dL (3.2-5.5); ALBUMIN/GLOBULIN RATIO 1.3 (1.0-2.2); ALKALINE PHOSPHATASE 58 IU/L (42-121); ALT ALANINE AMINOTRANSFERASE 27 IU/L (10-60); AST ASPARTATE AMINOTRANSFERASE 24 IU/L (10-42); BILIRUBIN,TOTAL 1.2 mg/dL (0.2-1.0); BUN - BLOOD UREA NITROGEN 12 mg/dL (6-20); CALCIUM 8.8 mg/dL (8.5-10.3); CARBON DIOXIDE - CO2 20 mmol/L (21-32); CHLORIDE 101 mmol/L (101-111); CREATININE 0.9 mg/dL (0.4-1.0); GLUCOSE 177 mg/dL (70-100); LIPASE 26 U/L (22-51); SALICYLATE < 6.0 mg/dL; SODIUM 134 mmol/L (135-145); TOTAL PROTEIN 7.5 g/dL (6.7-8.2)
--- NOTE | 2020-01-04 19:13 | CT Report ---
PROCEDURE: HEAD WO INDICATIONS: Altered mental status TECHNIQUE: Noncontrast 4.5 mm thick angled axial sections acquired from the foramen magnum to the vertex. For r adiation dose reduction, the following was used: automated exposure control, adjustment of mA and/or kV according to patient size. COMPARISON: None. FINDINGS: Image quality: Excellent. CSF spaces: Basal cisterns are patent. No extra-axial fluid collections. Ventricles are normal in size and shape. Brain: No midline shift. No intracranial masses or hemorrhage. Street-white matter interface is norm al. Skull and face: Calvarium and visualized facial bones are intact, without suspicious lesions. Sinuses: Visualized sinuses and mastoids are clear. IMPRESSION: No acute intracranial finding demonstrated. Reviewed by: Rishabh Long MD on 01/04/2020 7:12 PM PDT Approved by: Rishabh Long MD on 01/04/2020 7:12 PM PDT Station ID: [id number]
[2020-01-04] MEDS ORDERED: HALOPERIDOL 5 MG/ML VIAL IVP ONE (19:17)
[2020-01-04] MEDS ORDERED: POTASSIUM CHLORIDE 20 MEQ TABLET PO STA (19:17)
[2020-01-04 21:22] VITALS: BP 117/74
== END 2020-01-04 21:20 | disposition home or self-care (01) ==
LOC: EDUNIT# → ED 18:29
DX: G47.01 Insomnia due to medical condition (principal); R41.0 Disorientation, unspecified; F17.200 Nicotine dependence, unspecified, uncomplicated
CPT/HCPCS: 36415; 70450; 80320; 80329; 82803; 83690; 93005; 96374; 96375; 99284; A9270; J2060; 80053; 80307; 84443; 85025

== ENCOUNTER 2021-03-01 08:44 | Outpatient (CLI) | payer OTHER ==
--- NOTE | 2021-03-03 08:55 | Mammography Report ---
UNILATERAL LEFT DIGITAL DIAGNOSTIC MAMMOGRAM 3D/2D: 03/01/2021 CLINICAL: Diffuse left breast pain. Comparison is made to exams dated: 06/02/2020 mammogram - [facility], 12/12/2018 mammogram, and mammogram - [facility]. The tissue of left breast is heterogeneously dense. T his may lower the sensitivity of mammography. Left breast implant is intact. No significant masses, calcifications, or other findings are seen in the breast. There has been no significant interval change. IMPRESSION: NEGATIVE There is no mammographic evidence of malignancy. A 1 year screening mammogram is recommended. Future imaging is recommended as follows: 06/03/2021 screening mammogram. This exam was interpreted at Station ID: [id number]. NOTE: For mammograms, a report in lay terms will be sent to the patient. Approximately 15% of breast malignancies will not be visualized mammographically. In the management of a palpable breast mass, a negative mammogram must not discourage biopsy of a clinically suspicious lesion. Electronically Signed By: Rishabh Long M.D., jr/dylan:03/01/2021 09:24:37 copy to: Rey GORDILLO, [facility], ph: [phone], fax: [phone] ACR BI-RADS Category 1: Negative 3341F PARENCHYMAL PATTERN: (D) - The breast(s) demonstrate(s) heterogeneously dense fibroglandular parenchy ma. BI-RADS CATEGORY: (1) - 1 RECOMMENDATION: (ANNUAL) - Recommend routine annual screening mammography. [id number] 1 year screening LATERALITY: (B)
== END 2021-03-01 08:45 | disposition home or self-care (01) ==
LOC: DI 08:44
PROVIDERS: ATTEND Internal Medicine
DX: N64.4 Mastodynia (principal); N63.21 Unspecified lump in the left breast, upper outer quadrant

== ENCOUNTER 2021-07-06 13:49 | Emergency (ER) | payer OTHER ==
[2021-07-06 14:01] VITALS: BP 130/91
--- NOTE | 2021-07-06 15:20 | ED Physician Documentation ---
History of Present Illness - Stated complaint Stated Complaint: LT KNEE/HIP PX - Chief complaint Chief Complaint: Ext Problem - Additonal information Additional information: 41-year-old female presents emergency department for evaluation of acute left knee and hip pain. Reports 5 days ago she was walking and suddenly her knee gave out. She fell forward onto her friend who helped her to the ground. She did not fall directly onto her extremities. Since then she has had pain that extends from the hip down to the knee. There is mild swelling of the knee. She does have a longstanding history of chronic knee and hip pain on the right but never the left. She has been taking 800 of Motrin 2-3 times a day without relief of symptoms. She called the [place] nurse line and was told to come to the ER. She has no fevers Review of Systems Constitutional: denies: Fever, Chills Eyes: reports: Reviewed and negative Throat: reports: Reviewed and negative Cardiac: reports: Reviewed and negative Respiratory: reports: Reviewed and negative Musculoskeletal: reports: Extremity pain, Joint pain PD PAST MEDICAL HISTORY - Past Medical History Cardiovascular: None Respiratory: None Neuro: None Endocrine/Autoimmune: None GI: None MANAGER BUSINESS MANAGEMENT: None : None HEENT: None Psych: ADD/ADHD Musculoskeletal: None Derm: None - Past Surgical History Past Surgical History: Yes /MANAGER BUSINESS MANAGEMENT: section - Present Medications Home Medications: Ambulatory Orders Medication Instructions Recorded Confirmed Dextroamphetamine/Amphetamine 30 mg PO QAM 04/21/13 08/17/18 [Adderall 15 mg Tablet] Levonorgestrel [Mirena] 1 each IY 04/21/13 04/21/13 Trazodone HCl 50 mg PO HS PRN 04/21/13 08/17/18 Amox/Clav 875/125 [Augmentin] 1 each PO Q12H #10 tablet 08/17/18 FLUoxetine [PROzac] 20 mg ORAL DAILY 08/17/18 08/17/18 HYDROcod/ACETAM 5/325 [[place] 5/325] 1 tablet PO BID PRN #10 tablet 07/06/21 - Allergies Allergies/Adverse Reactions: Allergies Allergy/AdvReac Type Severity Reaction Status Date / Time doxycycline Allergy Unknown Verified 07/06/21 14:00 - Social History Does the pt smoke?: Yes Smoking Status: Current every day smoker Does the pt drink ETOH?: No Does the pt have substance abuse?: No - Immunizations Immunizations are current?: Yes - POLST Patient has POLST: No PD ED PE EXPANDED - General General: Alert, No acute distress - Extremities Extremities: Left hip (Full range of motion both actively and passively without pain elicited. Pain only when bearing weight. No swelling. No tenderness of the proximal trochanter.), Left knee (Mild swelling medially. No laxity. Normal flexion extension against resistance. Patient is able to bear nearly full weight.) Results - Vitals Vitals: Vital Signs - 24 hr 07/06/21 13:57 Temperature 36.3 C L Heart Rate 67 Respiratory 16 Rate Blood Pressure 130/91 H O2 Saturation 97 Oxygen O2 Source Room air - Rads (name of study) left hip/knee Radiology: Final report received (No fracture or dislocation. There is medial left knee effusion) PD MEDICAL DECISION MAKING - ED course Complexity details: reviewed results, re-evaluated patient, considered differential, d/w patient ED course: 41-year-old female presents emergency department with acute left knee and hip pain after her knee gave out when walking 5 days ago. Since then she has been having pain not relieved with Motrin. She is able to bear nearly full weight. [facility] come to [facility] ER. X-ray of the knee and hip does not show any fracture but she does have a moderate joint effusion of the left knee as well as some osteoarthritis. Patient is placed in a knee immobilizer. Discussed that if symptoms not markedly improved over about 2 weeks time she may benefit from physical therapy and/or consideration of an MRI to be arranged through her primary care provider. Clinically history is not significant for infectious etiology. Obviously no fracture. Emergent return precautions were discussed. I am prescribing a short course of short-acting opioid pain medication for this patient. I have reviewed the patients DIRECTOR POST and no concerning findings were noted. I have discussed that the opioids are for short term therapy only, and will not be refilled from the ED. Departure - Departure Disposition: 01 Home, Self Care Clinical Impression: Sprain of left hip Qualifiers: Encounter type: initial encounter Qualified Code(s): S73.102A - Unspecified sprain of left hip, initial encounter Left knee sprain Qualifiers: Encounter type: initial encounter Involved ligament of knee: unspecified ligament Qualified Code(s): S83.92XA - Sprain of unspecified site of left knee, initial encounter Osteoarthritis, knee Qualifiers: Osteoarthritis type: unspecified Laterality: left Qualified Code(s): M17.12 - Unilateral primary osteoarthritis, left knee Condition: Stable Record reviewed to determine appropriate education?: Yes Instructions: ED Sprain Knee Prescriptions: HYDROcod/ACETAM 5/325 [[place] 5/325] 1 tablet PO BID PRN #10 tablet PRN Reason: Pain Comments: Tatum you are seen today in the emergency department for pain in the left hip and knee after your knee gave out a number of days ago. The x-rays do not show any broken bones. You do have an effusion around your knee which is often a sign of sprain. The x-ray also suggest that you are developing early arthritis in the knee. I would like you to continue to use the knee immobilizer and Motrin at home. A limited prescription for hydrocodone is being sent to the [facility] in [place] [facility]. If your pain and symptoms are not markedly better after about 2 weeks time you may benefit from referral to physical therapy. If still not improved your primary care doctor may want to consider an MRI of the knee. Return to the emergency department if you develop fevers, have knee redness suddenly severe or different pain. I am prescribing a short course of narcotic pain medication for you. These are potentially dangerous and addictive medications that should be used carefully. These medications may constipate you. Take an imsp-clo-gjprjts stool softener (docusate) twice daily with plenty of water while taking these medications. If you go 24 hours without a bowel movement, take fjen-yma-ndehpjh miralax, per package instructions. Do not drink or drive while taking these medications. If you received narcotic or sedating medications while in the emergency department, do not drive for 24 hours. Store this medication in a safe, secure place and out of reach of children. It is a violation of federal law to give or sell this medication to another person or to use in a manner other than prescribed. The ED will not refill narcotic prescriptions, including prescriptions lost or stolen. To dispose of unwanted medications: 1. [facility] at [address] in [place] has a medication drop box. They accept prescription medications (in pil l form) Saturday through Saturday 9:00 a.m. to 5:00 p.m. 2. The [facility] [employer] accepts prescription medications (in pill form only) for disposal year round. Call for more information. 3. Contact the [facility] for the next [facility] sponsored prescription drug collection event. , [phone], or [phone]; Note that many narcotic pain relievers also contain Tylenol/acetaminophen. Please ensure that your total dose of acetaminophen from all sources does not exceed 3 g (3000 mg) per day.
--- NOTE | 2021-07-06 16:02 | XRAY Report ---
PROCEDURE: Knee 2 View LT INDICATIONS: pain in knee after "giving out" TECHNIQUE: 2 views of the left knee(s) were acquired. COMPARISON: None. FINDINGS: Bones: No fractures or dislocations. Mild tricompartment osteoarthritis is seen more prominent in me dial femoral tibial compartment. No suspicious bony lesions. Soft tissues: Small to moderate suprapatellar joint effusion is noted. No suspicious soft tissue lynne cifications. IMPRESSION: No acute left knee fracture or dislocation. Small to moderate joint effusion. Mild trico mpartment osteoarthritis more prominent in medial femoral tibial compartment. Reviewed by: Wesley Curry MD on 07/06/2021 4:01 PM PDT Approved by: Wesley Curry MD on 07/06/2021 4:01 PM PDT Station ID: [id number]
--- NOTE | 2021-07-06 16:03 | XRAY Report ---
PROCEDURE: Hip w/Pelvis 2-3V LT INDICATIONS: pain in hip after knee gave out TECHNIQUE: AP pelvis with lateral view(s) of the left hip(s). COMPARISON: None. FINDINGS: Bones: No fractures or dislocations. Pelvic ring appears intact. No suspicious bony lesions. Soft tissues: The visualized bowel gas pattern is normal. No suspicious soft tissue calcifications. Intrauterine device is seen. IMPRESSION: No acute left hip fracture or dislocation. No evidence of avascular necrosis of femoral h ead. Reviewed by: Wesley Curry MD on 07/06/2021 4:02 PM PDT Approved by: Wesley Curry MD on 07/06/2021 4:02 PM PDT Station ID: [id number]
== END 2021-07-06 16:28 | disposition home or self-care (01) ==
LOC: ED 13:49
DX: S73.102A Unspecified sprain of left hip, initial encounter (principal); S83.92XA Sprain of unspecified site of left knee, initial encounter; X58.XXXA Exposure to other specified factors, initial encounter; Y93.01 Activity, walking, marching and hiking; M17.12 Unilateral primary osteoarthritis, left knee; F17.200 Nicotine dependence, unspecified, uncomplicated
CPT/HCPCS: 99282; 99283

== ENCOUNTER 2021-09-17 03:36 | Emergency (ER) | payer OTHER ==
[2021-09-17] MEDS ORDERED: LORazepam 1 MG TABLET PO STA (04:08)
--- NOTE | 2021-09-17 04:40 | ED Physician Documentation ---
History of Present Illness - Stated complaint Stated Complaint: - Chief complaint Chief Complaint: Neuro - History obtained from History obtained from: Patient - Additonal information Additional information: Patient is a 41-year-old female presenting for evaluation of feeling heat in her body, palpitations and feeling disconnected from thoughts in her head that she says Worsened overnight. These feelings have been intermittent since Saturday when she was seen in the emergency department. Patient drove herself to the emergency department tonight. She recalls being in the emergency department a few days ago and believes they told her at that time to stop her Prozac so she has.She is tearful and is not able to state why. She denies being suicidal or homicidal. She denies hearing voices. She denies ingestion of any drugs or alcohol. She denies trauma.She denies chest pain or trouble breathing. She has had previous ED visits with similar concerns for confusion. Review of Systems Constitutional: denies: Fever Nose: denies: Congestion Cardiac: reports: Palpitations. denies: Chest pain / pressure Respiratory: denies: Dyspnea, Cough GI: denies: Abdominal Pain, Vomiting Musculoskeletal: denies: Back pain Neurologic: denies: Head injury Psychiatric: reports: Anxiety PD PAST MEDICAL HISTORY - Past Medical History Cardiovascular: None Respiratory: None Neuro: None Endocrine/Autoimmune: None GI: None HAND COREMAKER: None : None HEENT: None Psych: ADD/ADHD Musculoskeletal: None Derm: None - Past Surgical History Past Surgical History: Yes /HAND COREMAKER: section - Present Medications Home Medications: Ambulatory Orders Medication Instructions Recorded Confirmed Dextroamphetamine/Amphetamine 30 mg PO QAM 04/21/13 08/17/18 [Adderall 15 mg Tablet] Levonorgestrel [Mirena] 1 each IY 04/21/13 04/21/13 Trazodone HCl 50 mg PO HS PRN 04/21/13 08/17/18 Amox/Clav 875/125 [Augmentin] 1 each PO Q12H #10 tablet 08/17/18 FLUoxetine [PROzac] 20 mg ORAL DAILY 08/17/18 08/17/18 HYDROcod/ACETAM 5/325 [[place] 5/325] 1 tablet PO BID PRN #10 tablet 07/06/21 LORazepam [Ativan] 1 mg PO TID #10 tablet 09/17/21 - Allergies Allergies/Adverse Reactions: Allergies Allergy/AdvReac Type Severity Reaction Status Date / Time doxycycline Allergy Unknown Verified 09/17/21 03:53 - Social History Does the pt smoke?: Yes Smoking Status: Current every day smoker Does the pt drink ETOH?: No Does the pt have substance abuse?: No - Immunizations Immunizations are current?: Yes - POLST Patient has POLST: No PD ED PE NORMAL - General General: Alert and oriented X 3, Well developed/nourished, Other (Tearful) - HEENT HEENT: Atraumatic, PERRL, EOMI, Pharynx benign - Neck Neck: Supple, no meningeal sign - Cardiac Cardiac: RRR, No murmur, Strong equal pulses - Respiratory Respiratory: No respiratory distress, Clear bilaterally - Abdomen Abdomen: Normal bowel sounds, Soft, Non tender, Non distended - Derm Derm: Warm and dry - Neuro Neuro: Alert and oriented X 3, auto design detailer 2-12 intact, No motor deficit, No sensory deficit, Normal speech, Other (Normal gait) Eye Opening: Spontaneous Motor: Obeys Commands Verbal: Oriented GCS Score: 15 - Psych Psych: No: Normal mood (Tearful) Results - Vitals Vitals: Vital Signs - 24 hr 09/17/21 09/17/21 09/17/21 03:41 05:11 06:47 Temperature 36 C L 36.2 C L Heart Rate 86 66 70 Respiratory 18 18 18 Rate Blood Pressure 150/112 H 130/94 H 134/88 H O2 Saturation 98 100 98 Oxygen O2 Source Room air - EKG (time done) 0411 Rate: Rate (enter#) (61) Rhythm: NSR [place]: Normal Ischemia: No: ST elevation c/w ischemia - Labs Labs: Laboratory Tests 09/17/21 09/17/21 09/17/21 04:45 05:00 05:00 WBC 9.8 RBC 5.12 Hgb 14.7 Hct 44.1 MCV 86.1 MCH 28.7 MCHC 33.3 RDW 12.4 Plt Count 338 MPV 9.9 Neut # (Auto) 6.5 Lymph # (Auto) 2.3 [place] # (Auto) 0.7 Eos # (Auto) 0.2 Baso # (Auto) 0.1 Absolute Nucleated RBC 0.00 Nucleated RBC % 0.0 Sodium 136 Potassium 3.3 L Chloride 104 Carbon Dioxide 22 Anion Gap 10.0 BUN 16 Creatinine 0.8 Estimated GFR (MDRD) 78 L Glucose 114 H Calcium 9.2 Total Bilirubin 1.1 H AST 14 ALT 15 Alkaline Phosphatase 57 Total Protein 7.7 Albumin 4.4 Globulin 3.3 Albumin/Globulin Ratio 1.3 Urine Color YELLOW Urine Clarity CLEAR Urine pH 6.0 Ur Specific [place] <=1.005 Urine Protein NEGATIVE Urine Glucose (UA) NEGATIVE Urine Ketones NEGATIVE Urine Occult Blood SMALL H Urine Nitrite NEGATIVE Urine Bilirubin NEGATIVE Urine Urobilinogen 0.2 (NORMAL) Ur Leukocyte Esterase NEGATIVE Urine RBC 0-5 Urine WBC 0-3 Ur Squamous Epith Cells FEW Squamous Urine Bacteria Rare Ur Microscopic Review INDICATED Urine Culture Comments NOT INDICATED Urine HCG, Qual NEGATIVE Ethyl Alcohol < 5.0 PD MEDICAL DECISION MAKING - ED course Complexity details: reviewed results, re-evaluated patient ED course: 0524 - Patient appears more calm. Tells me [facility] and that she is recently been started on Prozac and hydroxyzine. She has had tro uble though finding a therapist In the area but is scheduled to see the [facility] a month via phone call or video. She again denies feeling suicidal or homicidal and hearing voices.She is unsure of any particular stresses that may be exacerbating her symptoms. 0625 - Patient slept for an hour. She reports feeling significantly better and feels back to herself. She no longer feels heaviness in the head and feels her thoughts are clear. She is unsure of why this has been happening to her. She reports having a good day yesterday with going to her son's baseball game. She feels safe going home at this time and plans to [facility] to [facility] as well as finding a primary care doctor to establish care with.She is aware of return precautions.We also discussed that she should resume her Prozac at the starting dose of 20 mg daily. Patient presenting for evaluation of having difficulties with her thoughts, feeling flushed and having palpitations. She is able to ambulate on her own and answer questions appropriately. She does not appear altered or confused.Her symptoms are suggestive of panic attack or anxiety. EKG is reassuring and labs are reviewed. Patient had significant improvement in her symptoms after Ativan. She had received Ativan earlier this week for another visit of similar presentation. Patient is not suicidal or homicidal and does not meet criteria for psychiatric hospitalization at this time. She feels safe going home and I will prescribe a small course of Ativan to help with her symptoms while she is attempting to establish care with a primary care doctor and therapist. She does have psychiatry services through [facility] and I have also encouraged her to reach out to them. She is advised on strict return precautions for any worsening symptoms. Departure - Departure Disposition: Home, Self Care Clinical Impression: Stress reaction Condition: Stable Instructions: ED Stress React, ED Panic Attack Prescriptions: LORazepam [Ativan] 1 mg PO TID #10 tablet Comments: You have been evaluated today for having difficulties with your thoughts, feeling flushed, and heart racing.Your heart was checked and is in a normal rhythm. Your labs are reassuring and are normal. You received a medication called Ativan to help calm your nerves and this does appear to have improved your symptoms. I am Unsure as to why you are feeling this way but do think you are safe to be discharged home today. Please [facility] or to a primary care doctor As you should have close follow-up. I would recommend that you restarting your Prozac at the starting dose of 20 mg/day.I will also prescribe a small amount of medicine called Ativan to help calm your nerves should you start feeling this way again. Please take the medication only as prescribed.I will send the prescription to the right aid in [place]. If it anytime you feel unsafe, Want to harm yourself or Have symptoms that concern you please return to the emergency department. Discharge Date/Time: 09/17/21 06:47
[2021-09-17 04:52] LABS: BILIRUBIN,URINE NEGATIVE (NEGATIVE); GLUCOSE, URINE (UA) NEGATIVE (NEGATIVE); KETONES,URINE (UA) NEGATIVE (NEGATIVE); LEUKOCYTE ESTERASE, URINE NEGATIVE (NEGATIVE); NITRITE,URINE NEGATIVE (NEGATIVE); OCCULT BLOOD,URINE SMALL (NEGATIVE); PROTEIN,URINE NEGATIVE (NEGATIVE); UROBILINOGEN,URINE 0.2 (NORMAL) E.U./dL (NORMAL)
[2021-09-17 04:55] LABS: CLARITY,URINE CLEAR (CLEAR); HCG UR QUAL NEGATIVE
[2021-09-17 05:01] LABS: RBC,URINE 0-5 /HPF (0-5); WBC,URINE 0-3 /HPF (0-5)
[2021-09-17 05:02] LABS: BACTERIA,URINE Rare /HPF (None Seen); SQUAMOUS EPITHELIAL CELL,UR FEW Squamous (<= Few)
[2021-09-17 05:11] LABS: BASOPHILS # (AUTO) 0.1 10^3/uL (0.0-0.1); BASOPHILS % (AUTO) 0.9 %; EOSINOPHILS # (AUTO) 0.2 10^3/uL (0.0-0.7); EOSINOPHILS % (AUTO) 1.8 %; HCT - HEMATOCRIT 44.1 % (37.0-47.0); HGB - HEMOGLOBIN 14.7 g/dL (12.0-16.0); LYMPHOCYTES # (AUTO) 2.3 10^3/uL (1.5-3.5); LYMPHOCYTES % (AUTO) 23.5 %; MEAN CORPUSCULAR HEMOGLOBIN 28.7 pg (27.0-31.0); MEAN CORPUSCULAR HGB CONC 33.3 g/dL (32.0-36.0); MEAN CORPUSCULAR VOLUME 86.1 fL (81.0-99.0); MEAN PLATELET VOLUME 9.9 fL (7.9-10.8); MONOCYTES # (AUTO) 0.7 10^3/uL (0.0-1.0); MONOCYTES % (AUTO) 7.2 %; NEUTROPHILS # (AUTO) 6.5 10^3/uL (1.5-6.6); NEUTROPHILS % (AUTO) 66.3 %; PLT - PLATELET COUNT 338 10^3/uL (130-450); RED BLOOD COUNT 5.12 10^6/uL (4.20-5.40); RED CELL DISTRIBUTION WIDTH 12.4 % (12.0-15.0); WHITE BLOOD COUNT 9.8 x10^3/uL (4.8-10.8)
[2021-09-17 05:22] LABS: ALBUMIN 4.4 g/dL (3.2-5.5); ALBUMIN/GLOBULIN RATIO 1.3 (1.0-2.2); ALKALINE PHOSPHATASE 57 IU/L (42-121); ALT ALANINE AMINOTRANSFERASE 15 IU/L (10-60); AST ASPARTATE AMINOTRANSFERASE 14 IU/L (10-42); BILIRUBIN,TOTAL 1.1 mg/dL (0.2-1.0); BUN - BLOOD UREA NITROGEN 16 mg/dL (6-20); CALCIUM 9.2 mg/dL (8.5-10.3); CARBON DIOXIDE - CO2 22 mmol/L (21-32); CHLORIDE 104 mmol/L (101-111); CREATININE 0.8 mg/dL (0.4-1.0); ETOH - ETHANOL < 5.0 mg/dL; GFR - MDRD 78 (>89); GLUCOSE 114 mg/dL (70-100); POTASSIUM 3.3 mmol/L (3.5-5.0); SODIUM 136 mmol/L (135-145); TOTAL PROTEIN 7.7 g/dL (6.7-8.2)
[2021-09-17 06:48] VITALS: BP 134/88
== END 2021-09-17 06:47 | disposition home or self-care (01) ==
LOC: ED 03:36
DX: F43.9 Reaction to severe stress, unspecified (principal); F17.200 Nicotine dependence, unspecified, uncomplicated
CPT/HCPCS: 36415; 80053; 80320; 81001; 81025; 85025; 93005; 99283; 99284; J8499; 81003; 87086

== ENCOUNTER 2022-01-16 06:41 | Outpatient (CLI) | payer OTHER ==
--- NOTE | 2022-01-16 11:16 | Ultrasound Report ---
PROCEDURE: Abdomen Limited INDICATIONS: ABN ABD IMAGING, THYROID NODULE TECHNIQUE: Real-time focused scanning was performed of the abdomen, with image documentation. COMPARISON: 03/18/2018 abdominal ultrasound. FINDINGS: Increased hepatic parenchymal echogenicity consistent with diffuse hepatic steatosis. Well -circumscribed hyperechoic mass in the right hepatic dome measures 3.1 x 2.6 x 3.4 cm, increased from 2.1 x 2.3 x 2.6 cm on the prior study. No additional hepatic mass identified. No intrahepatic or ext rahepatic biliary ductal dilatation. Status post cholecystectomy. Pancreas normal. Right kidney unrem arkable. IMPRESSION: Mildly increased size of hyperechoic mass in the right hepatic dome since March 2018 exam. This re mack consistent with probable hemangioma, although confirmation with multiphase liver protocol CT wo uld be recommended to exclude FNH or hepatic adenoma which can appear similar sonographically. Reviewed by: Rishabh Long MD on 01/16/2022 11:15 AM PDT Approved by: Rishabh Logn MD on 01/16/2022 11:15 AM PDT Station ID: [id number]
--- NOTE | 2022-01-16 15:10 | Ultrasound Report ---
PROCEDURE: Head or Neck Soft Tissue INDICATIONS: ABN ABD IMAGING, THYROID NODULE TECHNIQUE: Real-time scanning was performed of the thyroid gland, with image documentation. COMPARISON: None FINDINGS: Right: Thyroid lobe measures 5.1 x 1.6 x 1.4 cm, and is homogeneous in echotexture. Left: Thyroid lobe measures 4.9 x 1.5 x 1.6 cm, and is homogenous in echotexture. Isthmus: 2.5 mm thick. Nodule number: 1 Location: Left midpole Size: 1.6 x 1.0 x 1.3 cm. Composition: Predominantly solid Echogenicity: Isoechoic Shape: wider than tall. Margins: Smooth Echogenic foci: None Total points: 3 ACR TI-RADS category: 3 Nodule number: 2 Location: Left superior pole Size: 0.8 x 0.5 x 0.8 cm. Composition: Solid Echogenicity: Hypoechoic Shape: wider than tall. Margins: Lobulated Echogenic foci: None Total points: 6 ACR TI-RADS category: 4 IMPRESSION: 1. Left midpole TI-RADS 3 nodule measuring 1.6 x 1.0 x 1.3 cm. Recommend follow-up at 1, 3, and 5 yea rs as below. 2. Left superior pole TI-RADS 4 nodule measuring 0.8 x 0.5 x 0.8 cm. ACR TI-RADS definitions and recommendations: TI-RADS 1 (benign): 0 points. FNA not needed. TI-RADS 2 (not suspicious): 2 points. FNA not needed. TI-RADS 3 (mildly suspicious): 3 points. "FNA if 2.5 cm or larger, follow up if 1.5 cm or larger (at 1, 3, and 5 years). TI-RADS 4 (moderately suspicious): 4-6 points. "FNA if 1.5 cm or larger, follow up if 1 cm or larger (at 1, 2, 3, and 5 years). TI-RADS 5 (highly suspicious): 7 points or more. "FNA if 1 cm or larger, follow up if 0.5 cm or larger (every year for 5 years). Reviewed by: Vasyl Jarrett on 01/16/2022 3:09 PM PDT Approved by: Vasyl Jarrett on 01/16/2022 3:09 PM PDT Station ID: [id number]
== END 2022-01-16 06:42 | disposition home or self-care (01) ==
LOC: DI 06:41
PROVIDERS: ATTEND Nurse Practitioner
DX: R16.0 Hepatomegaly, not elsewhere classified (principal); E04.2 Nontoxic multinodular goiter; R53.83 Other fatigue
CPT/HCPCS: 36415; 80053; 80061; 83721; 84439; 84443; 85025; 85651; 86140

== ENCOUNTER 2022-01-16 07:49 | Outpatient (CLI) | payer OTHER ==
[2022-01-16 08:04] LABS: BASOPHILS # (AUTO) 0.1 10^3/uL (0.0-0.1); BASOPHILS % (AUTO) 1.3 %; EOSINOPHILS # (AUTO) 0.3 10^3/uL (0.0-0.7); EOSINOPHILS % (AUTO) 3.2 %; HCT - HEMATOCRIT 44.6 % (37.0-47.0); HGB - HEMOGLOBIN 14.7 g/dL (12.0-16.0); LYMPHOCYTES # (AUTO) 2.6 10^3/uL (1.5-3.5); LYMPHOCYTES % (AUTO) 33.5 %; MEAN CORPUSCULAR HEMOGLOBIN 29.3 pg (27.0-31.0); MEAN CORPUSCULAR VOLUME 88.8 fL (81.0-99.0); MEAN PLATELET VOLUME 10.3 fL (7.9-10.8); MONOCYTES # (AUTO) 0.5 10^3/uL (0.0-1.0); NEUTROPHILS # (AUTO) 4.2 10^3/uL (1.5-6.6); NEUTROPHILS % (AUTO) 54.7 %; PLT - PLATELET COUNT 313 10^3/uL (130-450); RED BLOOD COUNT 5.02 10^6/uL (4.20-5.40); RED CELL DISTRIBUTION WIDTH 12.6 % (12.0-15.0); WHITE BLOOD COUNT 7.7 x10^3/uL (4.8-10.8)
[2022-01-16 08:22] LABS: ALBUMIN 4.1 g/dL (3.2-5.5); ALBUMIN/GLOBULIN RATIO 1.2 (1.0-2.2); ALKALINE PHOSPHATASE 45 IU/L (42-121); ALT ALANINE AMINOTRANSFERASE 16 IU/L (10-60); AST ASPARTATE AMINOTRANSFERASE 15 IU/L (10-42); BILIRUBIN,TOTAL 0.9 mg/dL (0.2-1.0); BUN - BLOOD UREA NITROGEN 11 mg/dL (6-20); CALCIUM 9.2 mg/dL (8.5-10.3); CARBON DIOXIDE - CO2 25 mmol/L (21-32); CHLORIDE 105 mmol/L (101-111); CHOLESTEROL 182 mg/dL; CREATININE 0.8 mg/dL (0.4-1.0); GFR - MDRD 78 (>89); GLUCOSE 104 mg/dL (70-100); HDL CHOLESTEROL 45 mg/dL; LDL CHOLESTEROL,CALCULATED 112 mg/dL; LDL/HDL RATIO 2.5 (<4.4); SODIUM 138 mmol/L (135-145); TOTAL PROTEIN 7.5 g/dL (6.7-8.2); TRIGLYCERIDES 127 mg/dL; VLDL CHOLESTEROL 25 mg/dL
[2022-01-16 08:23] LABS: CRP - C-REACTIVE PROTEIN < 1.0 mg/dL (0-1.0)
[2022-01-16 08:35] LABS: THYROID STIMULATING HORMONE 1.04 uIU/mL (0.34-5.60)
[2022-01-16 08:37] LABS: FREE T4 (FREE THYROXINE) 0.9 ng/dL (0.58-1.64)
== END 2022-01-16 07:50 | disposition home or self-care (01) ==
LOC: LAB 07:49
PROVIDERS: ATTEND Nurse Practitioner
DX: E04.1 Nontoxic single thyroid nodule (principal); R53.83 Other fatigue
CPT/HCPCS: 36415; 80053; 80061; 83721; 84439; 84443; 85025; 85651; 86140

== ENCOUNTER 2022-11-19 10:47 | Outpatient (CLI) | payer OTHER | END 2022-11-19 23:59 | disposition short-term general hospital (02) | LOC: EMS 10:47 | DX: R00.0 Tachycardia, unspecified (principal); R42 Dizziness and giddiness; R53.1 Weakness | CPT/HCPCS: A0425; A0427 ==

== ENCOUNTER 2023-05-01 08:40 | Outpatient (CLI) | payer OTHER ==
--- NOTE | 2023-05-01 11:28 | Ultrasound Report ---
PROCEDURE: Abdomen Limited INDICATIONS: LIVER MASS TECHNIQUE: Limited real focused scanning was performed of the liver region of interest, with image documentation . COMPARISONS: Ultrasound abdomen dated 01/16/2022. FINDINGS: Liver: Liver measures normal in size at 10.6 cm with hypoechoic echotexture. This likely represents fatty liver. Right lateral hyperechoic lesion now measures 2.9 x 2.7 x 3.2 cm previously measuring ap proximately 3.1 x 2.6 x 3.4 cm, appearing similar to prior study. Gallbladder: Removed Miscellaneous: No free abdominal fluid. IMPRESSION: The hypoechoic lesion in the right lobe of the liver appears similar to prior study. This again likel y represents an incidental benign hemangioma although definite evaluation would require CT liver prot ocol. Reviewed by: Dez Lombardo MD on 05/01/2023 11:26 AM PST Approved by: Dez Lombardo MD on 05/01/2023 11:26 AM PST Station ID: [id number]
== END 2023-05-01 08:41 | disposition home or self-care (01) ==
LOC: DI 08:40
PROVIDERS: ATTEND Nurse Practitioner
DX: K76.89 Other specified diseases of liver (principal)

== ENCOUNTER 2023-05-01 08:59 | Outpatient (CLI) | payer OTHER ==
--- NOTE | 2023-05-01 11:53 | Mammography Report ---
BILATERAL DIGITAL DIAGNOSTIC MAMMOGRAM 3D/2D WITH AUGMENTATION: 05/01/2023 CLINICAL: Intermittent pain in left breast. Due for bilateral exam. Comparison is made to exams dated: 03/01/2021 mammogram - [facility], 03/01/2021 m ammogram - [facility], 06/02/2020 mammogram - [facility], 12/12/2018 mammogram, and 08/18/2013 mammogram - [facility]. There are scattered areas of fibroglandular density in both breasts (category b / 25%-50% glandular t issue). No significant masses, calcifications, or other findings are seen in either breast. Bilateral breast implants are intact. IMPRESSION: NEGATIVE There is no mammographic evidence of malignancy. Patient describes resolved left breast pain. Patient is advised to monitor for significant change. [place] is advised to monitor for significant change. A 1 year screening mammogram is recommended. Based on the Tyrer Cuzick model (a risk assessment model) the patient's lifetime risk is 5.0% and her 10 year risk is 0.9%. According to the ACR, ACS, and NCCN guidelines, an annual breast MRI exam марина g with mammogram is recommended if the patients lifetime risk is 20% or greater. This exam was interpreted at Station ID: [id number]. NOTE: For mammograms, a report in lay terms will be sent to the patient. Approximately 15% of breast malignancies will not be visualized mammographically. In the management of a palpable breast mass, a negative mammogram must not discourage biopsy of a clinically suspicious lesion. Electronically Signed By: Thor Goddard M.D. slc/:05/01/2023 09:50:49 ACR BI-RADS Category 1: Negative 3341F PARENCHYMAL PATTERN: (A) - The breast(s) demonstrate(s) scattered fibroglandular densities. BI-RADS CATEGORY: (1) - 1 Mammogram [id number] 1 year screening LATERALITY: (B)
== END 2023-05-01 09:00 | disposition home or self-care (01) ==
LOC: DI 08:59
PROVIDERS: ATTEND Nurse Practitioner
DX: N64.4 Mastodynia (principal); R92.323 Mammographic fibroglandular density, bilateral breasts; Z98.82 Breast implant status; K76.89 Other specified diseases of liver

== ENCOUNTER 2023-06-06 10:35 | Emergency (ER) | payer OTHER ==
--- NOTE | 2023-06-06 13:18 | ED Physician Documentation ---
PD HPI HEENT - Stated complaint Stated Complaint: EARS RINGING,NECK STIFFNESS - Chief complaint Chief Complaint: Heent - History obtained from History obtained from: Patient - History of Present Illness Timing - onset: How many days ago (2-3) Timing - duration: Days Timing - details: Gradual onset, Still present. No: Waxing and waning (fairly consistent and bothersome. Unable to sleep due to the sound. Mainly left ear. No current vertigo but treated for vertigo the past couple of weeks. No URI symptoms.) Location: Left ear Improves: No: Medication (meclizine for vertigo not helping with the current tinnitus.) Worsens: No: Position Associated symptoms: No: Fever, Congestion, Rhinorrhea, Swollen nodes, Headache Similar symptoms before: Has not had sx before Recently seen: Clinic (for vertigo and Rx with Meclizine that has been helping.) Review of Systems Constitutional: denies: Fever, Chills Ears: reports: Tinnitus/ringing. denies: Ear pain, Drainage/discharge Nose: denies: Rhinorrhea / runny nose, Congestion, Sinus pressure / pain Throat: denies: Sore throat Skin: denies: Rash, Lesions Musculoskeletal: reports: Neck pain (left side with movement). denies: Back pain Neurologic: denies: Focal weakness, Numbness, Difficulty speaking PD PAST MEDICAL HISTORY - Past Medical History Past Medical History: Yes Cardiovascular: None Respiratory: None Neuro: None Endocrine/Autoimmune: None GI: None BOWLING BALL MARKER: None : None HEENT: None Psych: ADD/ADHD Musculoskeletal: None Derm: None - Past Surgical History Past Surgical History: Yes /BOWLING BALL MARKER: section - Present Medications Home Medications: Ambulatory Orders Medication Instructions Recorded Confirmed Dextroamphetamine/Amphetamine 30 mg PO QAM 04/21/13 08/17/18 [Adderall 15 mg Tablet] Levonorgestrel [Mirena] 1 each IY 04/21/13 04/21/13 Trazodone HCl 50 mg PO HS PRN 04/21/13 08/17/18 Amox/Clav 875/125 [Augmentin] 1 each PO Q12H #10 tablet 08/17/18 FLUoxetine [PROzac] 20 mg ORAL DAILY 08/17/18 08/17/18 HYDROcod/ACETAM 5/325 [[place] 5/325] 1 tablet PO BID PRN #10 tablet 07/06/21 LORazepam [Ativan] 1 mg PO TID #10 tablet 09/17/21 Cetirizine [ZyrTEC] 10 mg PO BID #20 tablet 06/06/23 dexAMETHasone [Decadron] 4 mg PO DAILY #5 tablet 06/06/23 diazePAM [Valium] 5 mg PO BID PRN #15 tablet 06/06/23 - Allergies Allergies/Adverse Reactions: Allergies Allergy/AdvReac Type Severity Reaction Status Date / Time bee venom protein (honey bee) Allergy Hives Verified 06/06/23 10:52 doxycycline Allergy Unknown Verified 09/17/21 03:53 fluoxetine [From Prozac] AdvReac Unknown Verified 06/06/23 10:53 - Social History Does the pt smoke?: Yes Smoking Status: Current every day smoker Does the pt drink ETOH?: No Does the pt have substance abuse?: No - Immunizations Immunizations are current?: Yes - POLST Patient has POLST: No PD ED PE NORMAL - Vitals Vital signs reviewed: Yes - General General: Alert and oriented X 3, Well developed/nourished, Other (very distressed and tearful due to the persistence and degree of the sound. ) - HEENT HEENT: PERRL, EOMI, Ears normal, Pharynx benign - Neck Neck: Supple, no meningeal sign, No adenopathy, No bruit - Cardiac Cardiac: RRR, No murmur - Respiratory Respiratory: Clear bilaterally - Neuro Neuro: Alert and oriented X 3, hydrological technical officer 2-12 intact, No motor deficit, No sensory deficit, Normal speech Results - Vitals Vitals: Oxygen O2 Source Room air - Labs Labs: Laboratory Tests 06/06/23 06/06/23 14:15 14:15 WBC 6.0 RBC 4.94 Hgb 14.0 Hct 44.1 MCV 89.3 MCH 28.3 MCHC 31.7 L RDW 13.0 Plt Count 339 MPV 10.2 Neut # (Auto) 2.5 Lymph # (Auto) 2.9 [place] # (Auto) 0.4 Eos # (Auto) 0.2 Baso # (Auto) 0.1 Absolute Nucleated RBC 0.00 Nucleated RBC % 0.0 Sodium 137 Potassium 3.9 Chloride 106 Carbon Dioxide 24 Anion Gap 7.0 BUN 13 Creatinine 0.7 Estimated GFR (MDRD) 90 Glucose 95 Calcium 9.5 Magnesium 1.9 Total Bilirubin 0.8 AST 17 ALT 17 Alkaline Phosphatase 48 C-Reactive Protein < 0.5 Total Protein 7.2 Albumin 4.3 Globulin 2.9 Albumin/Globulin Ratio 1.5 Lipase 11 - Rads (name of study) head/neck angiography Relevant Findings:: Prelim report reviewed (no acute vascular abnormality. variants noted. No other structural abnormal commented. ), EMP independent interpretation of test PD Medical Decision Making - ED course Complexity details: reviewed results (head/neck angio was without acute abnormalities. Labs also good withut sodium, glucose, crp abnormalities. Presume tinnitus coming from middle ear or vestibulochoclear nerve ([place]). ), considered differential (she describes severe unreletning tinnitus left ear for weeks. It is really distressing and keeping her from sleeping and just bothered all day. Some headache with it. UpToDate reference suggests workup with head angio as vascular problems are the more serious causes of this.), d/w patient Departure - Departure Disposition: 01 Home, Self Care Clinical Impression: Tinnitus of left ear Condition: Stable Instructions: Tinnitus Follow-Up: [facility] [place] [Provider Group] Prescriptions: dexAMETHasone [Decadron] 4 mg PO DAILY #5 tablet diazePAM [Valium] 5 mg PO BID PRN #15 tablet PRN Reason: Spasms Cetirizine [ZyrTEC] 10 mg PO BID #20 tablet Comments: I am sorry you are here so long in the ER. It did take time to get to and from the waiting room and then the CT scan and certainly took a long time to get the CT report. Apologize for those. Your CT scan did not show any obvious tumors, aneurysms, vascular abnormalities or signs of stroke etc. Your blood test were good without any signs of electrolyte abnormalities or diabetes. At this point we do assume likely some inflammation of the nerve that goes to the middle and inner ear. We would treat this with a steroid anti-inflammatory for the next 5 or 6 days. Sometimes this symptoms can come from increased fluid in the middle ear in your ear as well. I would also suggest cetirizine twice daily for the next week. Diazepam can be helpful in relieving some of the symptoms. He can try twice daily to try to help decrease the ringing/tinnitus while hopefully the steroids will have an effect over the next 1 to 3 days. Follow-up with research instrumentation technician. There is one in [place]. I provided their number. I sent your prescriptions to your preferred pharmacy. I did print out a copy of your CT report for you to have on record. Forms: PCP List Discharge Date/Time: 06/06/23 18:02
[2023-06-06] MEDS ORDERED: iohexoL-300 100 ML VIAL ONE (14:25)
[2023-06-06] MEDS: SODIUM CHLORIDE 0.9% 1,000 ML IV STA (14:26)
[2023-06-06 14:28] LABS: BASOPHILS # (AUTO) 0.1 10^3/uL (0.0-0.1); BASOPHILS % (AUTO) 1.5 %; EOSINOPHILS # (AUTO) 0.2 10^3/uL (0.0-0.7); EOSINOPHILS % (AUTO) 3.7 %; HCT - HEMATOCRIT 44.1 % (37.0-47.0); LYMPHOCYTES # (AUTO) 2.9 10^3/uL (1.5-3.5); LYMPHOCYTES % (AUTO) 47.6 %; MEAN CORPUSCULAR HEMOGLOBIN 28.3 pg (27.0-31.0); MEAN CORPUSCULAR HGB CONC 31.7 g/dL (32.0-36.0); MEAN CORPUSCULAR VOLUME 89.3 fL (81.0-99.0); MEAN PLATELET VOLUME 10.2 fL (7.9-10.8); MONOCYTES # (AUTO) 0.4 10^3/uL (0.0-1.0); MONOCYTES % (AUTO) 6.3 %; NEUTROPHILS # (AUTO) 2.5 10^3/uL (1.5-6.6); NEUTROPHILS % (AUTO) 40.7 %; PLT - PLATELET COUNT 339 10^3/uL (130-450); RED BLOOD COUNT 4.94 10^6/uL (4.20-5.40)
[2023-06-06 14:32] LABS: ALBUMIN 4.3 g/dL (3.2-5.5); ALBUMIN/GLOBULIN RATIO 1.5 (1.0-2.2); ALKALINE PHOSPHATASE 48 IU/L (42-121); ALT ALANINE AMINOTRANSFERASE 17 IU/L (10-60); AST ASPARTATE AMINOTRANSFERASE 17 IU/L (10-42); BILIRUBIN,TOTAL 0.8 mg/dL (0.2-1.0); BUN - BLOOD UREA NITROGEN 13 mg/dL (6-20); CALCIUM 9.5 mg/dL (8.5-10.3); CARBON DIOXIDE - CO2 24 mmol/L (21-32); CHLORIDE 106 mmol/L (101-111); CREATININE 0.7 mg/dL (0.6-1.3); CRP - C-REACTIVE PROTEIN < 0.5 mg/dL (<0.5); GFR - MDRD 90 (>89); GLUCOSE 95 mg/dL (74-104); LIPASE 11 U/L (11-82); MAGNESIUM 1.9 mg/dL (1.7-2.3); POTASSIUM 3.9 mmol/L (3.5-4.5); SODIUM 137 mmol/L (135-145); TOTAL PROTEIN 7.2 g/dL (6.4-8.9)
[2023-06-06] MEDS: KETOROLAC 15 MG/ML VIAL IVP STA (14:32)
[2023-06-06] MEDS: DEXAMETHASONE 10 MG/ML VIAL IVP STA (14:32)
[2023-06-06] MEDS: diazePAM INJ 5 MG/ML SYRINGE IVP STA (14:33)
--- NOTE | 2023-06-06 17:11 | CT Report ---
PROCEDURE: Angio Head/Neck INDICATIONS: tinnitus left ear severe TECHNIQUE: Helical axial CT of the head and neck was obtained during the arterial phase of a intrave nous contrast injection utilizing an angiographic protocol. Multiplanar traditional and MIP reformat s were also obtained. Dose reduction techniques included either automated exposure control or adjustm ent of exposure parameters. COMPARISON: None. FINDINGS: Cerebral CT Angiogram: Internal carotid arteries: No acute findings. Intracranial ICA are patent with no significant steno sis. No occlusion. No aneurysm. 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 The A2 segments supplied by widely patent anterior communicating artery. Remainder of the distal vasculature unremarkable. Middle cerebral arteries: Unremarkable. No significant stenosis. No occlusion. No aneurysm. Posterior cerebral arteries: Hypoplasia/aplasia of the bilateral P1 SPEECH LANGUAGE PATHOLOGIST ASSISTANT noted. The P2 segments are s upplied by a widely patent posterior communicating artery. Remainder of the distal vasculature unrema rkable. Basilar artery: Diminutive but patent basilar artery terminates in the superior cerebellar arteries Vertebral arteries: Unremarkable as visualized. Dural venous sinuses: Unremarkable given phase of enhancement. Other: Arterial phase appearance of the brain parenchyma is unremarkable. Neck CT Angiogram: Internal carotid arteries: Unremarkable. No significant stenosis. No dissection or occlusion. Common carotid arteries: Unremarkable. No significant stenosis. No dissection or occlusion. External carotid arteries: Unremarkable. No occlusion. Vertebral arteries: Unremarkable. No significant stenosis. No dissection or occlusion. Aortic Arch and Mediastinum: Partially visualized aortic arch unremarkable without evidence of aneury sm. Origins of the great vessels unremarkable. Other: Arterial phase soft tissues of the neck are unremarkable. IMPRESSION: Unremarkable CT angiogram of the head and neck without large vessel occlusion, aneurysm or vascular m alformation Vascular intracranial anatomic variation as above Reviewed by: Den Hendricks MD on 06/06/2023 4:09 PM [place] Approved by: Den Hendricks MD on 06/06/2023 4:09 PM [facility] Station ID: [id number]
[2023-06-06 18:04] VITALS: BP 108/60; O2SAT 98
[2023-06-06] MEDS: iohexoL-300 100 ML VIAL IVP ONE (22:46)
== END 2023-06-06 18:02 | disposition home or self-care (01) ==
LOC: ED 10:35
DX: H93.13 Tinnitus, bilateral (principal); F17.200 Nicotine dependence, unspecified, uncomplicated; Z79.899 Other long term (current) drug therapy
CPT/HCPCS: 36415; 70496; 70498; 80053; 83690; 83735; 85025; 86140; 96374; 96375; 99284; Q9967